=== PATIENT | male | born 1980 ===

== ENCOUNTER 2019-02-08 10:34 | Inpatient (IN) | payer OTHER ==
[2019-02-08] VITALS (10 sets, daily range): BP systolic 118–158; BP diastolic 65–96
[~2019-02-08] VITALS: Ht 180.3 cm; Wt 102.1 kg
[~2019-02-08 10:34] MED LIST: GENTAMICIN IVPB ONE; NS IVPB ONE; Vancomycin 1 GM in D5W 275 ML IVPB ONE
[2019-02-08] MEDS ORDERED: Zemuron 50mg/5ml Inj IV ONE (10:55)
[2019-02-08] MEDS ORDERED: Thrombin 5000 units TOPIC ONE (11:06)
[2019-02-08] MEDS ORDERED: Heparin 5000 units/ml inj ONE (11:06)
[2019-02-08] MEDS ORDERED: Thrombin 5000 units spray kit TOPIC ONE (11:06)
[2019-02-08] MEDS ORDERED: Gelfoam Absorbable 1gm powder pkt TOPIC ONE (11:07)
[2019-02-08] MEDS ORDERED: Ropivacaine 5mg/ml Vial 30ml INJ ONE (11:07)
[2019-02-08] MEDS ORDERED: Gelfoam Size TOPIC ONE (11:07)
[2019-02-08] MEDS ORDERED: Bupivacaine w/Epi 0.5% 30ml Vial INJ ONE (11:07)
[2019-02-08] MEDS ORDERED: Bacitracin 50000 Units Vial ONE (11:08)
[2019-02-08] MEDS ORDERED: Lidocaine 1% Plain 30 ml INJ ONE ×3 (11:20→15:35)
[2019-02-08] MEDS ORDERED: Sodium Chloride 10ml vial INJ ONE (11:23)
[2019-02-08] MEDS ORDERED: Dexamethasone 4mg/ml vial ONE (11:23)
[2019-02-08] MEDS ORDERED: Lidocaine 1% MPF 10mg/ml 5ml ONE (11:23)
[2019-02-08] MEDS ORDERED: fentaNYL 100 mcg/2 mL IV ONE ×3 (11:27→14:38)
[2019-02-08] MEDS ORDERED: Succinylcholine 20mg/ml 10ml vial ONE (11:34)
[2019-02-08] MEDS ORDERED: LISINOPRIL20 MG ORAL (11:36)
[2019-02-08] MEDS ORDERED: METFORMIN HCL500 M1 ORAL (11:37)
[2019-02-08] MEDS ORDERED: AMLODIPINE BES2.5 MG ORAL (11:38)
[2019-02-08] MEDS ORDERED: TENORMIN50 MG ORAL (11:38)
[2019-02-08] MEDS ORDERED: LR 1000ml 1,000 ML IVLG SCH (11:51)
[2019-02-08] MEDS ORDERED: fentaNYL 100 mcg/2 mL IV PRN (12:00)
[2019-02-08] MEDS ORDERED: Acetaminophen (Non formulary) 100 ML IV ONE (12:00)
[2019-02-08] MEDS ORDERED: HYDROcodone/Acetamin 7.5/325 tab ORAL PRN (12:00)
[2019-02-08] MEDS ORDERED: Meperidine 50mg/ml Inj(FOR RIGORS ONLY) IVP PRN (12:00)
[2019-02-08] MEDS ORDERED: Labetalol 5mg/ml 20ml vial IV PRN (12:00)
[2019-02-08] MEDS ORDERED: HYDROcodone/Acetamin 5/325 tab ORAL PRN (12:00)
[2019-02-08] MEDS ORDERED: DiphenhydrAMINE 50mg/ml Inj IVP PRN (12:00)
[2019-02-08] MEDS ORDERED: oxyCODONE HCL/Acetaminophen 5/325mg ORAL PRN (12:00)
[2019-02-08] MEDS ORDERED: Metoclopramide 10mg/2ml Inj IVP PRN ×2 (12:00→12:15)
[2019-02-08] MEDS ORDERED: Hydromorphone 0.5mg/0.5ml inj IVP PRN (12:00)
[2019-02-08] MEDS ORDERED: LORazepam Inj 2mg/ml 1ml IV PRN (12:00)
[2019-02-08] MEDS ORDERED: Ketorolac 30mg Inj IV PRN ×2 (12:00)
[2019-02-08] MEDS ORDERED: Midazolam 2mg/2ml Inj IVP PRN (12:00)
[2019-02-08] MEDS ORDERED: Atropine Sulfate 0.4mg/ml inj IVP PRN (12:00)
--- NOTE | 2019-02-08 12:04 | Pre-Procedure Note/Attestation ---
Pre-Procedure Note/Attestation Complete Prior to Procedure Planned Procedure: bilateral Procedure Narrative: lumbar 4-lumbar 5 herniated disk planned anterior and posterior decompression fusion and instramentation Indications for Procedure Pre-Operative Diagnosis: lumbar 4 lumbar5 herniated disk Attestation I attest that I discussed the nature of the procedure; its benefits; risks and complications; and alternatives (and the risks and benefits of such alternatives ), prior to the procedure, with the patient (or the patient's legal player services representative). I attest that, if there was a reasonable possibility of needing a blood transfusion, the patient (or the patient's legal player services representative) was given the [facility] standardized written summary, pursuant to the Ariel Sandra Blood Safety Act ([place] Health and Safety Code # 1645, as amended). I attest that I re-evaluated the patient just prior to the surgery and that there has been no change in the patient's H&P, except as documented below: Josiah Moreno MD Feb 08, 2019 12:04
--- NOTE | 2019-02-08 12:04 | Anethesia Preoperative Eval ---
Anesthesia Pre-op PMH/ROS General Date of Evaluation: Feb 08, 2019 Time of Evaluation: 12:21 Anesthesiologist: Debbie ASA Score: ASA 3 Mallampati Score Class I : Soft palate, uvula, fauces, pillars visible Class II: Soft palate, uvula, fauces visible Class III: Soft palate, base of uvula visible Class IV: Only hard plate visible Mallampati Classification: Class II Surgeon: Tiffanie Diagnosis: Back Pain Surgical Procedure: ALIF L4-5, PLIF L4-5 Anesthesia History: none Family History: no anesthesia problems Allergies: Coded Allergies: No Known Allergies (Unverified , 02/07/19) Medications: see eMAR Patient NPO?: Yes NPO Date: Feb 08, 2019 NPO Time: 0300 Past Medical History Cardiovascular: Reports: HTN Endocrine: Reports: DM Other: obesity - BMI 31 Anesthesia Pre-op Phys. Exam Physician Exam Last Vital Signs Date Time Temp Pulse Resp B/P (MAP) Pulse Ox O2 Delivery O2 Flow Rate FiO2 02/08/19 11:31 98.6 83 20 158/96 (116) 98 02/08/19 11:14 Room Air Constitutional: NAD Neurologic: CN 2-12 intact Cardiovascular: RRR Respiratory: CTA Gastrointestinal: S/NT/ND Airway Exam Mallampati Score: Class II MO: full ROM: full Teeth: intact Anesthesia Pre-op A/P Risk Assessment & Plan Assessment: ASA 3 Plan: GA, SED, GlideScope Go Status Change Before Surgery: No Pre-Antibiotics Dru Grams Ancef IV Given Within 1 Hr of Incision: Yes Time Given: 12:41 Victoriano Leiws MD Feb 08, 2019 12:04
--- NOTE | 2019-02-08 12:05 | Immediate Post-Op Evaluation ---
Immediate Post-Op Evalulation Immediate Post-Op Evalulation Procedure: ALIF L4-5, PLIF L4-5 Date of Evaluation: Feb 08, 2019 Time of Evaluation: 17:05 IV Fluids: 1000 LR Blood Products: 0 Estimated Blood Loss: 200 Urinary Output: 375 Blood Pressure Systolic: 123 Blood Pressure Diastolic: 69 Pulse Rate: 77 Respiratory Rate: 16 O2 Sat by Pulse Oximetry: 100 Temperature (Fahrenheit): 98 Pain Score (1-10): 2 Nausea: No Vomiting: No Complications 0 Patient Status: awake, reacts, patent, extubated, none Hydration Status: adequate Dru Grams Ancef IV Given Within 1 Hr of Incision: Yes Time Given: 12:41 Victoriano Lewis MD Feb 08, 2019 12:05
--- NOTE | 2019-02-08 12:06 | Brief Operative Note ---
Immediate Post Operative Note Operative Note Pre-op Diagnosis: lumbar 4 lumbar5 herniated disk Procedure: anterior and posterior decompression fusion and instramentation Post-op Diagnosis: same as pre-op Anesthesia: general Specimen: none Complications: none Condition: stable Fluids: 1000 cc Drains: none Implant(s) used?: Yes Josiah Moreno MD Feb 08, 2019 12:06
[2019-02-08] MEDS ORDERED: Acetaminophen 650 MG SUPP RECTAL PRN (12:15)
[2019-02-08] MEDS ORDERED: Naloxone 0.4mg/ml Inj IVP PRN (12:15)
[2019-02-08] MEDS ORDERED: HYDROmorphone 1mg/ml Carpuject IVP PRN (12:15)
[2019-02-08] MEDS ORDERED: Neostigmine 1mg/ml 10ml Inj ONE (12:20)
[2019-02-08] MEDS ORDERED: NS Irrig 1000ml ONE (12:20)
[2019-02-08] MEDS ORDERED: Propofol 1,000mg/ 100ml btl IV ONE (12:20)
[2019-02-08] MEDS ORDERED: LR 1000ml ONE (12:20)
[2019-02-08] MEDS ORDERED: Sterile Water Irrig 1000ml IRRIG ONE (12:20)
[2019-02-08] MEDS ORDERED: Labetalol 5mg/ml 20ml vial IV ONE (13:24)
[2019-02-08] MEDS ORDERED: Vancomycin 1gm vial IVPB ONE (15:14)
[2019-02-08] MEDS ORDERED: Glycopyrrolate 0.2mg/ml 1ml Vial ONE (15:37)
--- NOTE | 2019-02-08 18:30 | NUR ---
NURSE NOTES: Received report from Henny REESE, pt a/a/o x4 laying in bed with no signs of distress or other issues at this time. Al cath was removed prior to sending the patient they removed 200ml. RN will follow up for post void. surgical dressing anterior and posterior dry and intact. IV on the right hand gauge #18 running LR at 125ml/hr. NPO except meds and ice. girlfriend at bedside. call light within reach. bed in lowest position. side rales up x2. I will f/u as needed.
--- NOTE | 2019-02-08 19:44 | Cardiology Progress Note ---
Assessment/Plan Assessment/Plan [id number] Objective Last 24 Hour Vital Signs Date Time Temp Pulse Resp B/P (MAP) Pulse Ox O2 Delivery O2 Flow Rate FiO2 02/08/19 18:00 98.0 02/08/19 18:00 98.0 02/08/19 17:51 98.0 02/08/19 17:50 98.0 78 13 139/72 100 Nasal Cannula 3 02/08/19 17:41 81 13 138/79 100 Nasal Cannula 3 02/08/19 17:32 76 13 138/75 100 Nasal Cannula 3 02/08/19 17:21 76 15 133/68 100 Simple Mask 6 02/08/19 17:17 79 13 126/70 100 Simple Mask 6 02/08/19 17:04 75 15 125/65 100 Simple Mask 6 02/08/19 16:59 73 21 118/69 100 Simple Mask 6 02/08/19 16:54 98.0 76 21 123/69 100 Simple Mask 6 02/08/19 16:51 77 16 100 02/08/19 11:31 98.6 83 20 158/96 (116) 98 02/08/19 11:26 98.6 83 18 158/96 (116) 98 02/08/19 11:14 Room Air Cesario Slaughter MD Feb 08, 2019 19:44
--- NOTE | 2019-02-08 19:45 | NUR ---
NURSE NOTES: Pt received from HUGH Tapia, in stable condition. No acute distress noted. Pt is awake and alert. Pt's family by bedside. Dressing dry and intact. Pt is given ice chips per request. Dr. Slaughter is by bedside to see patient. Pt reports pain 8/10. pain medication will be given as ordered PRN. Pt will be monitored.
--- NOTE | 2019-02-08 20:34 | NUR ---
HAND-OFF: Report given to Justin RN, pt in stable condition.
--- NOTE | 2019-02-08 20:45 | Consultation ---
DATE OF CONSULTATION: PREOPERATIVE DIAGNOSES: 1. L4-L5 herniated disk. 2. L4-L5 instability. 3. L4-L5 annular tears. POSTOPERATIVE DIAGNOSES: 1. L4-L5 herniated disk. 2. L4-L5 instability. 3. L4-L5 annular tears. FINDINGS: Instability at L4-L5. PROCEDURE: 1. L4-L5 anterior diskectomy. This included a complete diskectomy with decompression of the spinal canal and cauda equina and nerve roots, all the neurologic structures were fully decompressed. 2. Anterior interbody fusion. 3. Insertion of a PEEK cage at L4-L5. 4. Anterior stabilization, which included a plating at L4-L5. 5. Use of local bone graft. 6. Intraoperative use of fluoroscopy. 7. Use of spinal cord monitoring. SURGEON: Josiah Moreno M.D. CO-SURGEON: Dr. Griffin. ANESTHESIA: General with endotracheal intubation. ANESTHESIOLOGIST: Victoriano Lewis M.D. ESTIMATED BLOOD LOSS: Approximately 25 mL. CRYSTALLOID USE: Approximately 1 L. COUNTS: All sponge and needle counts were reported as correct. COMPLICATIONS: No complications occurred. DESCRIPTION OF PROCEDURE: Under general anesthesia with endotracheal intubation, the patient was placed in supine position on the OSI spine table. Abdomen was then prepped and draped in usual manner. Incision was made by Dr. Griffin paramedially. This was carried down through skin and subcutaneous tissue. He made a retroperitoneal dissection to the L4-L5 disk. We cleared the soft tissues from in front of the disk and identified the disk radiographically. The anulus was then incised with a knife. Endplates were with endplate separators and then the disk was removed with a variety of rongeurs. The cartilage endplates were curetted back to bleeding bone. A 45 degree Kerrisons were used to enter the canal and removed the herniated fragments, decompressing the spinal canal and neurologic structures. This was done by taking down the posterior longitudinal ligament and then removing the protruded and extruded fragments of disk that were in the canal. Once this was completed, the wound was copiously irrigated. The endplates were further curetted back to bleeding bone. Care was taken not to violate the endplates in doing this. A 15 mm 15 degree cage was then selected. It was packed with both demineralized bone matrix and bone morphogenic protein. Local bone was packed around the cage. The cage was tapped into position and the plate was fixed to the anterior portion of the cage and then two screws were inserted into the body of the caudal end of the endplates at L4 and then 2 into the cranial end of L5, locking the plate in position. A locking cap was then applied and appropriately torqued. X-rays were confirmatory showing that the cage screws and plate were in good position. Hemostasis was then achieved. The wound was then closed in layers by Dr. Griffin. Josiah Moreno MD DR: MURRAY JOB#: [id number] CC:
[2019-02-08] MEDS: D5 1/2NS w/KCl 20mEq 1,000 ML IV SCH (21:02)
[2019-02-08] MEDS: ceFAZolin sod 1 GM in D5W 55 ML IV SCH (21:02)
[2019-02-08] MEDS: HYDROcodone/Acetamin 7.5/325 tab ORAL PRN (21:03)
[2019-02-08] MEDS: NovoLOG Insulin Flexpen SUBQ SCH (21:04)
[2019-02-08] MEDS: Vancomycin 1 GM in D5W 275 ML IVPB SCH (21:59)
[2019-02-09] VITALS: BP 129/75
--- NOTE | 2019-02-09 | NUR ---
NURSE NOTES: 1 mg Dilaudid given IVP for breakthrough pain 04/30.
[2019-02-09 04:00] VITALS: BP 163/91
[2019-02-09] MEDS: ceFAZolin sod 1 GM in D5W 55 ML IV SCH ×2 (04:00→14:06)
[2019-02-09] MEDS: D5 1/2NS w/KCl 20mEq 1,000 ML IV SCH ×3 (04:00→20:08)
--- NOTE | 2019-02-09 04:00 | NUR ---
NURSE NOTES: D5 1/2NS with 20mEq KCl at 125ml/hr hanged and cefazolin 1GM given IV piggyback.
--- NOTE | 2019-02-09 04:36 | Operative Note - Dictated ---
DATE OF OPERATION: 02/08/2019 VASCULAR SURGEON: Kevan Griffin M.D. SPINE SURGEON: Josiah Moreno M.D. PREOPERATIVE DIAGNOSIS: Lumbar pain. POSTOPERATIVE DIAGNOSIS: Lumbar pain. PROCEDURE PERFORMED: Anterior retroperitoneal exposure of L4-L5 vertebral interspace, left retroperitoneal approach. INDICATIONS: The patient is a very pleasant gentleman who is seen in my office prior to surgery. He has no prior anterior spine surgery. No history of deep venous thrombosis or bleeding complications described. He has been made aware of the risks of surgery including vascular injury, possible need for blood transfusion, and deep venous thrombosis. DESCRIPTION OF FINDINGS: A vertical midline incision was used. A left retroperitoneal approach was used. There was no peritoneal or ureteral violation. There was no vascular injury. Exposure of L4-L5 was obtained by retraction of the left iliac vessels towards the patient's right. On completion, the peritoneum and ureter were intact. Iliac vessels were intact. Fluoroscopy confirmed at the appropriate level. Blood loss was approximately 50 to 100 mL. Complications were none. The patient has palpable femoral and pedal pulses and pulse oximetry is normal throughout the case in the left foot. DESCRIPTION OF PROCEDURE: The patient was taken to the operative room. General anesthesia was used. Antibiotics were given. The patient's abdomen prepped and draped. Appropriate time-out for procedure taken. A low vertical midline incision was made infraumbilically. The anterior fascia was incised longitudinally in the midline. A plane was identified posterior to the left rectus abdominis and developed posterolaterally towards the patient's left. The retroperitoneal space entered below the arcuate line. The peritoneum and ureter were mobilized towards the patient's right exposing the left common iliac artery and vein. Dissection was carried lateral to the left common iliac vessels. Overlying lymphatics were ligated with vascular clips. The iliolumbar vein was identified and doubly ligated with vascular clips and divided and the L4 segmental vessels were also identified and ligated with vascular clips and divided. This allowed us to then retract the left iliac artery and vein towards the patient's right and expose the anterior surface of the L4-L5. The Omni retractor was set in place. Fluoroscopy was then used to confirm the appropriate level. Then instrumentation performed at L4-L5 as dictated separately. On completion, the peritoneum and ureter were intact. Iliac vessels were intact. Anterior fascia was then closed with #1 PDS in a running fashion. The skin and subcutaneous tissue were closed with 3-0 Vicryl and 4-0 Monocryl running subcuticular closure technique. ESTIMATED BLOOD LOSS: Less than 100 mL. COMPLICATIONS: None. Kevan Griffin M.D. DR: DYLON JOB#: [id number] CC: Kevan Griffin M.D.; Fax#: [phone] Josiah Moreno M.D.
--- NOTE | 2019-02-09 04:36 | Operative Note - Dictated ---
DATE OF OPERATION: 02/08/2019 PREOPERATIVE DIAGNOSES: 1. L4-L5 herniated nucleus pulposus. 2. L4-L5 instability. 3. L4-L5 annular tears. POSTOPERATIVE DIAGNOSES: 1. L4-L5 herniated nucleus pulposus. 2. L4-L5 instability. 3. L4-L5 annular tears. PROCEDURES: 1. Posterior L4-L5 bilateral segmental fixation. 2. Posterior L4-L5 bilateral lateral fusion. 3. Use of local bone graft. 4. Intraoperative use of fluoroscopy. 5. Spinal cord monitoring. SURGEON: Josiah Moreno M.D. SPLITTING MACHINE FEEDER: Evelio Winslow M.D. ANESTHESIA: General with endotracheal intubation. ANESTHESIOLOGIST: Dr. Lewis. CONDITION: Stable. COMPLICATIONS: None. COUNTS: All sponge and needle counts reported as correct. ESTIMATED BLOOD LOSS: Approximately 10 mL. DESCRIPTION OF PROCEDURE: Under general anesthesia with endotracheal intubation, the patient was placed in prone position on the operating table. Back was prepped and draped in the usual manner. The C-arm was pulled into position the pedicle screws were identified. Jamshidi needles were then introduced towards the pedicles at L5 first bilaterally. The Jamshidis were then tapped into position within the pedicle. Care was taken did not breach the medial wall. Once this was completed, the guidewires were then inserted through the Jamshidi needles. Jamshidi needles were removed. Dilators were passed over the guidewires and then the holes were tapped and then at L5, 45 mm screws were passed bilaterally. This was done under C-arm control. They were tested. The screws were stimulated and noted to be in good position with no breach of the massey detected. We then moved up to L4 and repeated the same maneuver. Jamshidis were inserted bilaterally. Care was taken, so there was no breach at the medial wall. Guidewire was placed through the Jamshidi needle. Jamshidi needle was removed. The dilators were placed over the guidewires and then 40 mm screws 6.5 outer diameter screws were inserted. The screws were tested and no breach at the wall was detected on the spinal cord monitoring. The rods were then passed. Following this, setscrews were inserted, locking nuts were applied, and then the screws were appropriately torqued. The towers were then removed. Wounds were irrigated. Bone morphogenic protein was then inserted along the fusion beds bilaterally, which were roughened up prior to the insertion of the graft. The wounds were then closed in layers, 0 for fascia and then 4-0 for subcuticular closure. Sterile dressings were applied. The patient was taken to the recovery room and judged to be in stable condition and neurologically unchanged. Josiah Moreno MD DR: GLEN JOB#: [id number] CC:
--- NOTE | 2019-02-09 04:37 | Consultation ---
DATE OF CONSULTATION: 02/08/2019 INTERNAL MEDICINE CONSULTATION CONSULTING PHYSICIAN: Cesario Slaughter M.D. REASON FOR REFERRAL: Postoperative medical care. HISTORY OF PRESENT ILLNESS: This is a 38-year-old gentleman who has undergone anterior-posterior decompression fusion and instrumentation by Dr. Moreno and he has requested help in the care of the patient postoperatively. The patient is a diabetic. Does not have any chest pain. No shortness of breath. No throat discomfort at this time. No palpitation. Does have some minimal dizziness. PAST MEDICAL HISTORY: Positive for diabetes and high blood pressure. There is no history of heart attack, cancer, stroke, hepatitis, tuberculosis, asthma, emphysema, ulcers, kidney problems, liver problems, thyroid problems, anemia, arthritis, HIV, AIDS, blood clots, or bleeding disorders. ALLERGIES: He is not allergic to any medications. SOCIAL HISTORY: He does not smoke. Occasionally drinks alcoholic beverages. No drug use. He is single, but he has a girlfriend at bedside. REVIEW OF SYSTEMS: GASTROINTESTINAL: Negative. GENITOURINARY: Negative. PULMONARY: Negative. CONSTITUTIONAL: Negative. NEUROLOGICAL: Negative. PHYSICAL EXAMINATION: GENERAL: Shows to be middle-aged gentleman, in no respiratory distress. Lying flat. He is somewhat drowsy and arousable, but noncommunicative. NECK: Supple. No jugular venous distention. LUNGS: Clear to auscultation, percussion. CARDIAC: S1 is normal. S2 is normal. Regular rate and rhythm. No heaves, thrills, gallops, or rubs. ABDOMEN: Soft. Dressing in place. A Corpak in place. EXTREMITIES: Pneumatic compression stockings in place. No distal edema. Good pulses distally. NEUROLOGICAL: He is arousable, responsive. No postop labs are available at this time. An electrocardiogram preoperatively shows normal sinus rhythm. No significant ST-T abnormalities. The patient had an echocardiogram preop that showed a technically difficult study. Aortic root is mildly dilated. Measurement is 3.8. There is no structural valvular abnormalities. . The thickness is normal. LV systolic function is normal. Ejection fraction 65%. Trivial mitral regurgitation was noted. Perfusion imaging showed a fixed defect, apparently in the inferior wall with questionable previous infarction. Ejection fraction estimated at 45%. Chest x-ray shows no acute cardiopulmonary disease processes. Preop labs, I am unable to locate them in the chart. ASSESSMENT AND PLAN: 1. Diabetes mellitus, controlled on metformin only. 2. Lumbar 4 and lumbar 5 herniated disc, now status post decompression fusion and instrumentation. Postoperative pain. This patient was seen in internal medicine consultation. The patient's pain medication will be continued. Insulin sliding scale would be initiated. Blood pressure will be monitored. Incentive spirometry was discussed with the patient. DVT prophylaxis with the use of pneumatic compression stockings was also discussed with the patient. He is NPO except ice chips and medications by mouth. After diet is resumed, the patient will be placed back on his metformin. For the time being, he will have insulin sliding scale. Cesario Slaughter M.D. DR: DORY JOB#: [id number] CC:
--- NOTE | 2019-02-09 04:50 | NUR ---
NURSE NOTES: Pt is in bed, asleep. No acute distress noted.
--- NOTE | 2019-02-09 05:15 | NUR ---
NURSE NOTES: Pt ambulated to the bathroom and voided. Pt also had a BM. No distress noted. Dr. Moreno by bedside to see patient. Ordered for discharge tomorrow. Prescriptions in the chart. Doctor ordered to ambulate pt frequently. Pt is still NPO except ice chips and Meds.
--- NOTE | 2019-02-09 05:16 | Orthopedic Progress Note ---
Orthopedic - Progress Note Subjective Symptoms: improved Objective Last 24 Hour Vital Signs Date Time Temp Pulse Resp B/P (MAP) Pulse Ox O2 Delivery O2 Flow Rate FiO2 02/08/19 21:33 98.0 02/08/19 21:00 Nasal Cannula 2.0 02/08/19 18:00 98.0 02/08/19 18:00 98.0 02/08/19 17:51 98.0 02/08/19 17:50 98.0 78 13 139/72 100 Nasal Cannula 3 02/08/19 17:41 81 13 138/79 100 Nasal Cannula 3 02/08/19 17:32 76 13 138/75 100 Nasal Cannula 3 02/08/19 17:21 76 15 133/68 100 Simple Mask 6 02/08/19 17:17 79 13 126/70 100 Simple Mask 6 02/08/19 17:04 75 15 125/65 100 Simple Mask 6 02/08/19 16:59 73 21 118/69 100 Simple Mask 6 02/08/19 16:54 98.0 76 21 123/69 100 Simple Mask 6 02/08/19 16:51 77 16 100 02/08/19 11:31 98.6 83 20 158/96 (116) 98 02/08/19 11:26 98.6 83 18 158/96 (116) 98 02/08/19 11:14 Room Air Intake and Output 02/08/19 02/09/19 19:00 07:00 Intake Total 1100 ml 860 ml Output Total 575 ml Balance 525 ml 860 ml Intake Oral 0 ml IV Total 1100 ml 860 ml Output Urine Total 375 ml Estimated Blood Loss 200 ml # Voids 1 Wound: clean, dry, intact Drains: none Neuro Status: normal Vascular Status: normal Assessment Procedure Performed anterior and posterior decompression fusion and instramentation Plan Plan: PT, continue antibiotics, discharge plan Josiah Moreno MD Feb 09, 2019 05:16
[2019-02-09] MEDS: HYDROcodone/Acetamin 7.5/325 tab ORAL PRN ×3 (05:48→20:21)
[2019-02-09] MEDS: NovoLOG Insulin Flexpen SUBQ SCH ×4 (05:52→20:26)
[2019-02-09 06:41] VITALS: BP 158/85
--- NOTE | 2019-02-09 07:05 | NUR ---
HAND-OFF: Report given to HUGH Tapia.
[2019-02-09 08:00] VITALS: BP 158/87
--- NOTE | 2019-02-09 08:00 | NUR ---
NURSE NOTES: Received report from Justin RN, pt a/a/o x4 laying in bed with no signs of distress or other issues at this time. IV on the right hand gauge#18 running D5 1/2NS+20mEq@125ml/hr. pt its is NPO except ice chips and meds. pt was able to pass flatus and to have a BM, is aware. per slot shift manager report pt was able to ambulate last night with steady gait. plan for today for PT eval and tx. sadia light within reach. bed in lowest position. side rales up x2. i will f/u as needed.
[2019-02-09] MEDS: Lisinopril 20mg tab ORAL SCH (08:36)
[2019-02-09] MEDS: Vancomycin 1 GM in D5W 275 ML IVPB SCH (08:42)
--- NOTE | 2019-02-09 12:07 | Diagnostic Imaging Report ---
INDICATION: Pain, intraoperative TECHNIQUE: Intraoperative imaging Fluoroscopy time: 86.1 seconds Total dose: 0.70747 mGym2 Total number of images: 6 COMPARISON: None FINDINGS: Intraoperative images demonstrate surgical tool at the anterior aspect of what is presumably the L4-5 disc. Subsequent images demonstrate anterior fusion hardware and disc spacer at L4-5 and subsequently posterior fusion hardware at L4-5 IMPRESSION: Intraoperative imaging, as described
--- NOTE | 2019-02-09 12:11 | NUR ---
CASE MANAGEMENT:REVIEW 38 YR OLD MALE HERE FOR ELECTIVE SURGERY SI: LUMBAR PAIN 98.6 83 18 158/96 98% ON RA IS: TO SURGERY FOR: ANTERIOR/POSTERIOR LUMBAR DECOMPRESSION IV ANCEF Q8HRS IVF@125/HR : TO MED/SURG 3 EAST POST OP INTERQUAL CRITERIA MET
--- NOTE | 2019-02-09 12:21 | 48 Hour Post Anesthesia Eval ---
Post Anesthesia Evaluation Procedure: ALIF L4-5, PLIF L4-5 Date of Evaluation: Feb 09, 2019 Airway: patent Nausea: No Vomiting: No Pain Intensity: 2 Hydration Status: adequate Cardiopulmonary Status: at baseline Mental Status/LOC: patient returned to baseline Post-Anesthesia Complications: 0 Follow-up care needed: N/A - further care as per primary team Adrianna Gongora MD Feb 09, 2019 12:21
--- NOTE | 2019-02-09 19:32 | Cardiology Progress Note ---
Assessment/Plan Assessment/Plan 1. Diabetes mellitus, controlled on metformin only. 2. Lumbar 4 and lumbar 5 herniated disc, now status post decompression fusion and instrumentation. 3. Postoperative pain. 4. htn bs 155- 177 bp med resume dvt ppx IS encouraged use PT when has bm and is able to ambualte and eat will be dcd home at discretion of dr darby Subjective Cardiovascular: Denies: chest pain, palpitations Respiratory: Denies: SOB with excertion Gastrointestinal/Abdominal: Denies: abdominal pain Genitourinary: Denies: burning Objective Last 24 Hour Vital Signs Date Time Temp Pulse Resp B/P (MAP) Pulse Ox O2 Delivery O2 Flow Rate FiO2 02/09/19 14:37 99.0 02/09/19 09:00 Room Air 02/09/19 08:42 90 158/87 02/09/19 08:36 158/87 02/09/19 08:36 90 158/87 02/09/19 08:00 99.0 90 20 158/87 (110) 94 02/09/19 06:41 98.2 89 18 158/85 (109) 98 02/09/19 06:33 97 Nasal Cannula 2.0 28 02/09/19 06:31 Nasal Cannula 2.0 28 02/09/19 04:00 98.0 89 20 163/91 (115) 98 02/09/19 00:00 97.7 72 20 129/75 (93) 98 02/08/19 21:00 Nasal Cannula 2.0 General Appearance: no apparent distress, alert Neck: no JVD Cardiovascular: regular rhythm Respiratory/Chest: lungs clear Abdomen: normal bowel sounds, non tender, soft Extremities: no swelling Intake and Output 02/08/19 02/09/19 18:59 06:59 Intake Total 1100 ml 1235 ml Output Total 575 ml Balance 525 ml 1235 ml Intake Oral 0 ml IV Total 1100 ml 1235 ml Output Urine Total 375 ml Estimated Blood Loss 200 ml # Voids 1 1 Cesario Slaughter MD Feb 09, 2019 19:32
[2019-02-09 20:00] VITALS: BP 134/84
--- NOTE | 2019-02-09 20:34 | NUR ---
HAND-OFF: Report given to Karen REESE, pt in stable condition.
--- NOTE | 2019-02-09 20:35 | NUR ---
NURSE NOTES: Received report & pt from HUGH Tapia. Pt lying in bed, a&ox4, in room air. No s/s of acute distress & no c/o pain. IV site intact with IVF running as ordered. Surgical dressings C/D/I. Bed in lowest position, call light within reach. Will continue to monitor.
[2019-02-10] VITALS: BP 134/73
[2019-02-10] MEDS: HYDROcodone/Acetamin 7.5/325 tab ORAL PRN (02:34)
[2019-02-10 04:00] VITALS: BP 130/71
[2019-02-10] MEDS: D5 1/2NS w/KCl 20mEq 1,000 ML IV SCH (04:14)
[2019-02-10] MEDS: NovoLOG Insulin Flexpen SUBQ SCH (05:47)
--- NOTE | 2019-02-10 07:27 | NUR ---
HAND-OFF: Report given to HUGH Heart. Pt in stable condition.
--- NOTE | 2019-02-10 07:40 | NUR ---
NURSE NOTES: Received report from HUGH Jones. Rounding done with outgoing nurse. Patient a/o x4 and denies any pain at this time. Abdominal and back surgical site dressing is dry and intact. Patient keep NPO at this time. Bed in lowest position, call light within reach. Will continue to monitor.
[2019-02-10 08:00] VITALS: BP 127/76
--- NOTE | 2019-02-10 09:29 | NUR ---
NURSE NOTES: Patient has D/C order but pt on NPO now. Called Dr. Moreno and ordered. D/C home and clear liquid for 24hours and advance diet to regular diet. Noted and carried out.
[2019-02-10] MEDS ORDERED: NORCO 10-325 T1 EACH ORAL (09:42)
[2019-02-10] MEDS ORDERED: ACETAMINOPHEN-1 EAC1 ORAL (09:42)
[2019-02-10] MEDS ORDERED: SOMA350 MG PO (09:43)
[2019-02-10 09:47] VITALS: BP 127/76
[2019-02-10] MEDS: Lisinopril 20mg tab ORAL SCH (09:47)
[2019-02-10] MEDS ORDERED: Tubing IV Secondary IV ONE (09:59)
--- NOTE | 2019-02-10 10:10 | NUR ---
NURSE NOTES: Discharge instruction/written prescription was given to the patient. Removed IV line. Discharged accompanied by his in stable condition.
--- NOTE | 2019-02-12 14:30 | Discharge Summary ---
Discharge Summary Hospital Course Date of Admission Feb 08, 2019 at 10:34 Date of Discharge Feb 10, 2019 at 10:00 Admitting Diagnosis Spinal stenosis with radiculopathy and herniated disc Reason for Hospitalization: Elective surgery HPI Deepak Olivas is a 38 year old male who was admitted on Feb 08, 2019 at 10:34 for lumbar stenosis, radiculopathy, and herniated lumbar disc L4-L5. Patient was admitted for elective surgery. Consultations dr Slaughter - IM/cardio Procedures s/p 02/08/[address] Moreno PLIF L4-L5 1. Posterior L4-L5 bilateral segmental fixation. 2. Posterior L4-L5 bilateral lateral fusion. 3. Use of local bone graft. 4. Intraoperative use of fluoroscopy. 5. Spinal cord monitoring ALIF L4-L5 1. L4-L5 anterior diskectomy. This included a complete diskectomy with decompression of the spinal canal and cauda equina and nerve roots, all the neurologic structures were fully decompressed. 2. Anterior interbody fusion. 3. Insertion of a PEEK cage at L4-L5. 4. Anterior stabilization, which included a plating at L4-L5. 5. Use of local bone graft. 6. Intraoperative use of fluoroscopy. 7. Use of spinal cord monitoring. s/p 02/08/[address] Griffin (vascular for approach ) Anterior retroperitoneal exposure of L4-L5 vertebral interspace, left retroperitoneal approach. Hospital Course status post surgery / 2 stage procedure : anterior and posterior course of recovery uneventful initially IV fluids and NPO s/p perioperative antibiotics neurovascular status closely monitored, stable incisions clean ,dry and intact pain management was addressed, pain was controlled hemodynamically stable ambulated with PT DVT prophylaxis with SCD provided use of incentive spirometry was encouraged ,while in the bed fall precautions maintained; safe for ambulation slowly started on diet when bowel function returned; tolerated diet , IV fluids discontinued GI prophylaxis provided antiemetics were on board as needed blood pressure was managed with current regimen of multiple antihypertensive and remained stable blood sugar was closely monitored and managed with SSI , can resume metformin at home voided freely bowel regimen instituted patient was stable for discharge discharge instructions provided follow up with surgeon as outpatient as advised by surgeon FINAL DIAGNOSES 1. L4-L5 herniated nucleus pulposus. 2. L4-L5 instability. 3. L4-L5 annular tears 4. s/p anterior and posterior decompression fusion and instrumentation 5. HTN 6. Diabetes mellitus Discharge Medications Continued Medications: Acetaminophen With Codeine (T#3) (Tylenol #3 Tab*) Y Tab 1 TAB ORAL Q6HR PRN for For Pain, #60 TAB (This prescription has been renewed) Amlodipine Besylate* (Amlodipine Besylate*) 2.5 Mg Tablet 2.5 MG ORAL DAILY, TAB (This prescription has been renewed) Atenolol* (Tenormin*) 50 Mg Tablet 50 MG ORAL DAILY, TAB (This prescription has been renewed) Carisoprodol* (Soma*) 350 Mg Tablet 350 MG PO TID, #30 TAB (This prescription has been renewed) Hydrocodone Bit/Acetaminophen 10-325* ([place] 10-325*) 1 Each Tablet 1 TAB ORAL Q6H PRN for For Pain, #40 TAB 0 Refills (This prescription has been renewed) PRN PAIN Lisinopril (Lisinopril*) 20 Mg Tablet 20 MG ORAL DAILY, TAB (This prescription has been renewed) Metformin Hcl* (Metformin Hcl*) 500 Mg Tablet 500 MG ORAL TWICE A DAY, TAB (This prescription has been renewed) Discharge Condition Upon Discharge: stable Discharge Disposition Patient was discharged to Home () Discharge Instructions Discharge Instructions Special Instructions I have been assigned to complete a D/C Summary on this account. I was not involved in the patient management Sarah Bird NP Feb 12, 2019 14:30
== END 2019-02-10 10:00 | disposition home or self-care (01) | DRG 455 ==
LOC: SDSOVERFLO 10:34 → 3E 18:10
PROC: 0SG0071 Fusion of Lumbar Vertebral Joint with Autologous Tissue Substitute, Posterior Approach, Posterior Column, Open Approach (ICD-10-PCS; principal; 2019-02-08 12:30)
PROC: 3E0U0GB Introduction of Recombinant Bone Morphogenetic Protein into Joints, Open Approach (ICD-10-PCS; principal; 2019-02-08 12:30)
PROC: 0SG00A0 Fusion of Lumbar Vertebral Joint with Interbody Fusion Device, Anterior Approach, Anterior Column, Open Approach (ICD-10-PCS; principal; 2019-02-08 12:30)
DX: M51.16 Intervertebral disc disorders with radiculopathy, lumbar region (principal); E11.9 Type 2 diabetes mellitus without complications; I10 Essential (primary) hypertension; Z91.14 Patient's other noncompliance with medication regimen; Z79.84 Long term (current) use of oral hypoglycemic drugs; I25.2 Old myocardial infarction; M48.061 Spinal stenosis, lumbar region without neurogenic claudication; M53.2X6 Spinal instabilities, lumbar region
CPT/HCPCS: 36415; 72020; 76000; 82962; 86850; 86900; 86901; 87081; 94760; J1815; J2405; J2710